=== PATIENT | female | born 1945 | race Caucasian/White ===

== ENCOUNTER 2020-06-19 23:36 | Inpatient (IN) ==
[2020-06-20 01:02] LABS: Basophils # 0.1 10*3/uL (0.0-0.2); Basophils % 0.8 % (0.0-0.8); Eosinophils # 0.2 10*3/uL (0.0-0.87); Eosinophils % 2.3 % (0.00-10.9); Hematocrit 36.4 VOL% (35.7-47.0); Hemoglobin 12.1 GM/DL (12.0-16.0); Immature Granulocytes % 2.2 %; Immature Granulocytes Absolute 0.23 #; Lymphocytes # 1.4 10*3/uL (1.4-4.0); Mean Corpuscular HGB Conc 33.2 GM/DL (32-36); Mean Corpuscular Volume 98.1 FL (87-102); Mean Platelet Volume 9.3 FL (9.6-12.0); Monocytes % 7.6 % (1.7-12.7); Neutrophils % 74.1 % (38.7-73.9); Platelet Count 329 T/CUMM (130-400); Red Blood Count 3.71 MC/CUMM (3.8-5.5); Red Cell Distribution Width 13.3 % (9.3-17.3); White Blood Count 10.6 T/CUMM (4-12)
[2020-06-20 01:14] LABS: ABG Base Excess 1.9 MMOL/L (-2.5-2.5); ABG HCO3 26.1 MMOL/L (20-26); ABG Oxygen Saturation 97.8 % (95-100); ABG PCO2 41.5 MM HG (35-48); ABG PH 7.415 (7.35-7.45); ABG PO2 98.5 MM HG (80-95); ABG TCO2 23.2 MMOL/L (23-27)
[2020-06-20] MEDS ORDERED: AZITHROMYCIN INJ 500 MG in SODIUM CHLORIDE 0.9% 250 ML IV STA (02:26)
[2020-06-20] MEDS ORDERED: cefTRIAXone 2,000 MG in SODIUM CHLORIDE 0.9% 100 ML IV STA (02:26)
[2020-06-20 02:55] LABS: Albumin 3.2 G/DL (3.4-5.0); Bilirubin,Total 0.5 MG/DL (0.2-1.0); Calcium 10.3 MG/DL (8.5-10.1); Osmolality,Calculated 286.1 MOS/KG (273-304); Potassium 5.5 MMOL/L (3.5-5.1); Total Protein 6.6 G/DL (6.4-8.2)
[2020-06-20] MEDS ORDERED: GLUCAGON 1 MG VIAL IM PRN (04:42)
[2020-06-20] MEDS ORDERED: DEXTROSE 50% 25 GM/50 ML VIAL IV PRN (04:42)
[2020-06-20] MEDS ORDERED: SODIUM CHLORIDE 0.9% 1,000 ML IV SCH ×2 (05:00→15:00)
[2020-06-20] MEDS: DOXYCYCLINE HYCLATE INJ 100 MG in SODIUM CHLORIDE 0.9% 100 ML IV SCH ×2 (06:09→20:51)
[2020-06-20] MEDS ORDERED: ALBUTEROL 1.25 MG/3 ML NEB RESP TX PRN (06:19)
[2020-06-20 07:43] LABS: Calcium 10.1 MG/DL (8.5-10.1); Osmolality,Calculated 283.1 MOS/KG (273-304); Potassium 4.9 MMOL/L (3.5-5.1)
[2020-06-20] MEDS: INSULIN LISPRO 100 UNIT/ML SUBCUT SCH ×5 (08:58→21:16)
[2020-06-20] MEDS: amLODIPine 10 MG TABLET PO SCH (08:59)
[2020-06-20] MEDS: METOPROLOL TARTRATE 50 MG TABLET PO SCH ×2 (08:59→20:51)
[2020-06-20] MEDS: ANASTROZOLE 1 MG TABLET PO SCH (08:59)
[2020-06-20] MEDS: LEVOTHYROXINE 150 MCG TABLET PO SCH (08:59)
[2020-06-20] MEDS: IPRATROPIUM 500 MCG/2.5 ML NEB RESP TX SCH ×2 (14:27→23:44)
[2020-06-20 16:20] LABS: Bilirubin,Urine Negative (Negative); Blood, Urine Negative (Negative); Glucose,Urine (UA) 50 mg/dL (Negative); Ketones,Urine Negative (Negative); Mucus,Urine Occasional /LPF (Occasional); Nitrite,Urine Negative (Negative); Protein,Urine 30 MG/DL; RBC,Urine 1 /HPF (0-4); Squamous Epithelial Cell,Urine Occasional /HPF (0-10); Urine Appearance CLEAR (Clear); Urine Color Yellow (Yellow); Urine Specific Gravity 1.017 (1.001-1.035); Urine Urobilinogen < 2.0 EU/DL (0.2-1.0)
[2020-06-20] MEDS: INSULIN ASPART PROTAMINE/ASPART 70/30 100 UNIT/ML SUBCUT SCH (18:20)
[2020-06-20] MEDS: cefTRIAXone 1,000 MG in SODIUM CHLORIDE 0.9% 100 ML IV SCH (18:20)
[2020-06-20] MEDS: ACETAMINOPHEN 325 MG TABLET PO PRN (20:50)
[2020-06-21 05:33] LABS: Basophils # 0.1 10*3/uL (0.0-0.2); Basophils % 0.7 % (0.0-0.8); Eosinophils # 0.1 10*3/uL (0.0-0.87); Eosinophils % 1.3 % (0.00-10.9); Hematocrit 34.6 VOL% (35.7-47.0); Hemoglobin 11.1 GM/DL (12.0-16.0); Immature Granulocytes % 1.8 %; Immature Granulocytes Absolute 0.15 #; Lymphocytes # 1.4 10*3/uL (1.4-4.0); Mean Corpuscular HGB Conc 32.1 GM/DL (32-36); Mean Platelet Volume 9.2 FL (9.6-12.0); Monocytes % 7.7 % (1.7-12.7); Neutrophils % 72.5 % (38.7-73.9); Platelet Count 284 T/CUMM (130-400); Red Blood Count 3.46 MC/CUMM (3.8-5.5); Red Cell Distribution Width 13.5 % (9.3-17.3); White Blood Count 8.5 T/CUMM (4-12)
[2020-06-21 06:47] LABS: Osmolality,Calculated 288.7 MOS/KG (273-304); Potassium 4.5 MMOL/L (3.5-5.1); Thyroid Stimulating Hormone 0.529 uIU/ml (0.358-3.74)
[2020-06-21] MEDS: IPRATROPIUM 500 MCG/2.5 ML NEB RESP TX SCH (06:55)
[2020-06-21 07:34] LABS: Basophils # 0.1 10*3/uL (0.0-0.2); Basophils % 0.6 % (0.0-0.8); Eosinophils # 0.2 10*3/uL (0.0-0.87); Eosinophils % 1.5 % (0.00-10.9); Hematocrit 35.3 VOL% (35.7-47.0); Hemoglobin 11.7 GM/DL (12.0-16.0); Lymphocytes # 1.5 10*3/uL (1.4-4.0); Lymphocytes % 14.9 % (21.3-54.2); Mean Corpuscular HGB Conc 33.1 GM/DL (32-36); Mean Corpuscular Volume 99.2 FL (87-102); Mean Platelet Volume 9.2 FL (9.6-12.0); Monocytes % 6.7 % (1.7-12.7); Neutrophils % 74.3 % (38.7-73.9); Platelet Count 280 T/CUMM (130-400); Red Blood Count 3.56 MC/CUMM (3.8-5.5); Red Cell Distribution Width 13.6 % (9.3-17.3)
[2020-06-21 07:50] LABS: Calcium 10.5 MG/DL (8.5-10.1); Potassium 4.1 MMOL/L (3.5-5.1)
[2020-06-21] MEDS: INSULIN LISPRO 100 UNIT/ML SUBCUT SCH ×4 (08:39→21:14)
[2020-06-21] MEDS: LEVOTHYROXINE 150 MCG TABLET PO SCH (08:40)
[2020-06-21] MEDS: ANASTROZOLE 1 MG TABLET PO SCH (08:40)
[2020-06-21] MEDS: INSULIN ASPART PROTAMINE/ASPART 70/30 100 UNIT/ML SUBCUT SCH ×2 (08:40→17:13)
[2020-06-21] MEDS: METOPROLOL TARTRATE 50 MG TABLET PO SCH ×2 (08:41→21:13)
[2020-06-21] MEDS: DOXYCYCLINE HYCLATE INJ 100 MG in SODIUM CHLORIDE 0.9% 100 ML IV SCH (08:41)
[2020-06-21] MEDS: amLODIPine 10 MG TABLET PO SCH (08:41)
[2020-06-21] MEDS: LEVOFLOXACIN 750 MG TABLET PO SCH (10:21)
[2020-06-21] MEDS ORDERED: LORazepam 2 MG/1 ML VIAL IV ONE (11:15)
[2020-06-21] MEDS: RIVAROXABAN 15 MG TABLET PO SCH (16:03)
[2020-06-21] MEDS: cefTRIAXone 1,000 MG in SODIUM CHLORIDE 0.9% 100 ML IV SCH (17:13)
[2020-06-21] MEDS: ALBUTEROL/IPRATROPIUM 3 ML NEB RESP TX SCH (20:45)
[2020-06-22] MEDS: ALBUTEROL/IPRATROPIUM 3 ML NEB RESP TX SCH ×4 (01:42→19:25)
[2020-06-22 07:50] LABS: Calcium 10.2 MG/DL (8.5-10.1); Osmolality,Calculated 290.7 MOS/KG (273-304); Potassium 4.6 MMOL/L (3.5-5.1)
[2020-06-22] MEDS: LEVOTHYROXINE 150 MCG TABLET PO SCH (08:07)
[2020-06-22] MEDS: METOPROLOL TARTRATE 50 MG TABLET PO SCH ×2 (08:07→22:19)
[2020-06-22] MEDS: INSULIN LISPRO 100 UNIT/ML SUBCUT SCH ×4 (08:08→22:17)
[2020-06-22] MEDS: amLODIPine 10 MG TABLET PO SCH (08:08)
[2020-06-22] MEDS: ANASTROZOLE 1 MG TABLET PO SCH (08:08)
[2020-06-22] MEDS: RIVAROXABAN 15 MG TABLET PO SCH (08:08)
[2020-06-22] MEDS: INSULIN ASPART PROTAMINE/ASPART 70/30 100 UNIT/ML SUBCUT SCH (08:10)
[2020-06-22] MEDS: cefTRIAXone 1,000 MG in SODIUM CHLORIDE 0.9% 100 ML IV SCH (16:11)
[2020-06-22] MEDS: ACETAMINOPHEN 325 MG TABLET PO PRN ×2 (16:22→22:19)
[2020-06-22] MEDS ORDERED: INSULIN ASPART PROTAMINE/ASPART 70/30 100 UNIT/ML SUBCUT SCH (16:30)
[2020-06-23] MEDS: ALBUTEROL/IPRATROPIUM 3 ML NEB RESP TX SCH ×4 (01:49→19:11)
[2020-06-23 07:01] LABS: Basophils # 0.1 10*3/uL (0.0-0.2); Basophils % 0.9 % (0.0-0.8); Eosinophils # 0.4 10*3/uL (0.0-0.87); Eosinophils % 6.3 % (0.00-10.9); Hematocrit 34.2 VOL% (35.7-47.0); Hemoglobin 10.9 GM/DL (12.0-16.0); Immature Granulocytes % 2.9 %; Immature Granulocytes Absolute 0.19 #; Lymphocytes # 1.1 10*3/uL (1.4-4.0); Lymphocytes % 16.8 % (21.3-54.2); Mean Corpuscular HGB Conc 31.9 GM/DL (32-36); Mean Platelet Volume 9.1 FL (9.6-12.0); Monocytes % 7.5 % (1.7-12.7); Neutrophils % 65.6 % (38.7-73.9); Platelet Count 289 T/CUMM (130-400); Red Blood Count 3.42 MC/CUMM (3.8-5.5); Red Cell Distribution Width 13.7 % (9.3-17.3); White Blood Count 6.7 T/CUMM (4-12)
[2020-06-23 07:25] LABS: Albumin 2.5 G/DL (3.4-5.0); Bilirubin,Total 0.5 MG/DL (0.2-1.0); Calcium 10.3 MG/DL (8.5-10.1); Osmolality,Calculated 293.4 MOS/KG (273-304); Potassium 4.5 MMOL/L (3.5-5.1); Total Protein 6.7 G/DL (6.4-8.2)
[2020-06-23] MEDS ORDERED: INSULIN ASPART PROTAMINE/ASPART 70/30 100 UNIT/ML SUBCUT SCH (07:30)
[2020-06-23] MEDS: INSULIN LISPRO 100 UNIT/ML SUBCUT SCH ×4 (09:53→20:24)
[2020-06-23] MEDS: METOPROLOL TARTRATE 50 MG TABLET PO SCH ×2 (09:55→20:23)
[2020-06-23] MEDS: LEVOFLOXACIN 750 MG TABLET PO SCH (09:55)
[2020-06-23] MEDS: RIVAROXABAN 15 MG TABLET PO SCH (09:55)
[2020-06-23] MEDS: amLODIPine 10 MG TABLET PO SCH (09:55)
[2020-06-23] MEDS: ANASTROZOLE 1 MG TABLET PO SCH (09:55)
[2020-06-23] MEDS: LEVOTHYROXINE 150 MCG TABLET PO SCH (09:55)
[2020-06-23] MEDS: ACETAMINOPHEN 325 MG TABLET PO PRN ×2 (13:52→20:22)
[2020-06-23] MEDS: cefTRIAXone 1,000 MG in SODIUM CHLORIDE 0.9% 100 ML IV SCH (16:23)
[2020-06-23] MEDS: INSULIN ASPART PROTAMINE/ASPART 70/30 100 UNIT/ML SUBCUT SCH (16:23)
[2020-06-24] MEDS: ALBUTEROL/IPRATROPIUM 3 ML NEB RESP TX SCH ×4 (00:03→19:28)
[2020-06-24] MEDS: METOPROLOL TARTRATE 50 MG TABLET PO SCH ×2 (08:15→21:07)
[2020-06-24] MEDS: ANASTROZOLE 1 MG TABLET PO SCH (08:15)
[2020-06-24] MEDS: amLODIPine 10 MG TABLET PO SCH (08:15)
[2020-06-24] MEDS: LEVOTHYROXINE 150 MCG TABLET PO SCH (08:15)
[2020-06-24] MEDS: RIVAROXABAN 15 MG TABLET PO SCH (08:16)
[2020-06-24] MEDS: INSULIN ASPART PROTAMINE/ASPART 70/30 100 UNIT/ML SUBCUT SCH ×2 (08:16→16:02)
[2020-06-24] MEDS: INSULIN LISPRO 100 UNIT/ML SUBCUT SCH ×4 (08:17→21:08)
[2020-06-24] MEDS ORDERED: MAGNESIUM HYDROXIDE SUSP 30 ML UDCUP PO PRN (09:25)
[2020-06-24] MEDS: cefTRIAXone 1,000 MG in SODIUM CHLORIDE 0.9% 100 ML IV SCH (16:02)
[2020-06-25] MEDS: ALBUTEROL/IPRATROPIUM 3 ML NEB RESP TX SCH ×4 (01:28→19:13)
[2020-06-25] MEDS: INSULIN ASPART PROTAMINE/ASPART 70/30 100 UNIT/ML SUBCUT SCH ×2 (08:25→17:26)
[2020-06-25] MEDS: ANASTROZOLE 1 MG TABLET PO SCH (08:26)
[2020-06-25] MEDS: LEVOTHYROXINE 150 MCG TABLET PO SCH (08:26)
[2020-06-25] MEDS: amLODIPine 10 MG TABLET PO SCH (08:26)
[2020-06-25] MEDS: RIVAROXABAN 15 MG TABLET PO SCH (08:27)
[2020-06-25] MEDS: POLYETHYLENE GLYCOL POWDER 17 GM PACK PO SCH (08:27)
[2020-06-25] MEDS: METOPROLOL TARTRATE 50 MG TABLET PO SCH ×2 (08:27→20:49)
[2020-06-25] MEDS: LEVOFLOXACIN 750 MG TABLET PO SCH (08:34)
[2020-06-25] MEDS: INSULIN LISPRO 100 UNIT/ML SUBCUT SCH ×4 (08:36→23:17)
[2020-06-25 09:42] LABS: Calcium 10.5 MG/DL (8.5-10.1); Osmolality,Calculated 291.4 MOS/KG (273-304); Potassium 4.9 MMOL/L (3.5-5.1)
[2020-06-25] MEDS: GABAPENTIN 300 MG CAPSULE PO SCH (20:47)
[2020-06-25] MEDS ORDERED: BISACODYL 5 MG TABLET PO SCH (21:00)
[2020-06-26] MEDS: ALBUTEROL/IPRATROPIUM 3 ML NEB RESP TX SCH ×4 (00:35→19:37)
[2020-06-26 05:35] LABS: Basophils # 0.1 10*3/uL (0.0-0.2); Basophils % 1.1 % (0.0-0.8); Eosinophils # 0.4 10*3/uL (0.0-0.87); Eosinophils % 6.3 % (0.00-10.9); Hematocrit 33.9 VOL% (35.7-47.0); Hemoglobin 10.8 GM/DL (12.0-16.0); Immature Granulocytes % 5.9 %; Immature Granulocytes Absolute 0.37 #; Lymphocytes # 1.5 10*3/uL (1.4-4.0); Lymphocytes % 23.1 % (21.3-54.2); Mean Corpuscular HGB Conc 31.9 GM/DL (32-36); Mean Corpuscular Volume 100.3 FL (87-102); Mean Platelet Volume 9.4 FL (9.6-12.0); Monocytes % 10.4 % (1.7-12.7); Neutrophils % 53.2 % (38.7-73.9); Platelet Count 306 T/CUMM (130-400); Red Blood Count 3.38 MC/CUMM (3.8-5.5); Red Cell Distribution Width 13.9 % (9.3-17.3); White Blood Count 6.3 T/CUMM (4-12)
[2020-06-26 05:59] LABS: Band Neutrophils 1 % (0-10); Eosinophils 11 % (0-10); Lymphocytes 31 % (20-55); Metamyelocytes 1 %; Promyelocytes 1 %; Segmented Neutrophils 46 % (50-85); Total Cells Counted 100
[2020-06-26 06:00] LABS: Hypochromasia Slight; Macrocytosis Slight
[2020-06-26 06:01] LABS: Platelet Estimate Normal; Polychromasia Slight
[2020-06-26 06:19] LABS: Calcium 10.4 MG/DL (8.5-10.1); Osmolality,Calculated 281.5 MOS/KG (273-304); Potassium 4.3 MMOL/L (3.5-5.1)
[2020-06-26] MEDS ORDERED: POTASSIUM CHLORIDE 20 MEQ/15 ML UDCUP PER TUBE PRN (08:03)
[2020-06-26] MEDS ORDERED: BISACODYL 10 MG SUPP RECTAL ONE (08:03)
[2020-06-26] MEDS: INSULIN LISPRO 100 UNIT/ML SUBCUT SCH ×4 (08:33→20:18)
[2020-06-26] MEDS: INSULIN ASPART PROTAMINE/ASPART 70/30 100 UNIT/ML SUBCUT SCH ×2 (08:33→16:21)
[2020-06-26] MEDS: ANASTROZOLE 1 MG TABLET PO SCH (08:36)
[2020-06-26] MEDS: GABAPENTIN 300 MG CAPSULE PO SCH ×2 (08:36→20:18)
[2020-06-26] MEDS: FUROSEMIDE 40 MG/4 ML VIAL IV SCH (08:36)
[2020-06-26] MEDS: amLODIPine 10 MG TABLET PO SCH (08:36)
[2020-06-26] MEDS: RIVAROXABAN 15 MG TABLET PO SCH (08:36)
[2020-06-26] MEDS: LEVOTHYROXINE 150 MCG TABLET PO SCH (08:36)
[2020-06-26] MEDS: METOPROLOL TARTRATE 50 MG TABLET PO SCH ×2 (08:36→20:18)
[2020-06-26] MEDS: POLYETHYLENE GLYCOL POWDER 17 GM PACK PO SCH (08:37)
[2020-06-27] MEDS: ALBUTEROL/IPRATROPIUM 3 ML NEB RESP TX SCH ×2 (01:00→07:20)
[2020-06-27 05:26] LABS: Calcium 10.8 MG/DL (8.5-10.1); Osmolality,Calculated 283.1 MOS/KG (273-304); Potassium 4.7 MMOL/L (3.5-5.1)
[2020-06-27] MEDS: RIVAROXABAN 15 MG TABLET PO SCH (08:05)
[2020-06-27] MEDS: ANASTROZOLE 1 MG TABLET PO SCH (08:05)
[2020-06-27] MEDS: LEVOTHYROXINE 150 MCG TABLET PO SCH (08:05)
[2020-06-27] MEDS: METOPROLOL TARTRATE 50 MG TABLET PO SCH (08:06)
[2020-06-27] MEDS: amLODIPine 10 MG TABLET PO SCH (08:06)
[2020-06-27] MEDS: GABAPENTIN 300 MG CAPSULE PO SCH (08:06)
[2020-06-27] MEDS: POLYETHYLENE GLYCOL POWDER 17 GM PACK PO SCH (08:07)
[2020-06-27] MEDS: INSULIN ASPART PROTAMINE/ASPART 70/30 100 UNIT/ML SUBCUT SCH (08:08)
[2020-06-27] MEDS: FUROSEMIDE 40 MG/4 ML VIAL IV SCH (08:09)
[2020-06-27] MEDS: INSULIN LISPRO 100 UNIT/ML SUBCUT SCH ×2 (08:09→11:59)
[2020-06-27] MEDS ORDERED: MULTIVITAMIN (BEROCCA) TABLET PO SCH (09:00)
[2020-06-27] MEDS ORDERED: MYLANTA/LIDO VISC 2:1 300 ML BOTTLE SWISH/SPIT PRN (09:01)
[2020-06-27] MEDS: LEVOFLOXACIN 750 MG TABLET PO SCH (09:50)
[2020-06-27 11:57] VITALS: BP 141/62
[2020-06-28] MEDS ORDERED: INSULIN ASPART PROTAMINE/ASPART 70/30 100 UNIT/ML SUBCUT SCH (07:30)
== END 2020-06-27 13:54 | disposition swing bed (61) | DRG 193 ==
LOC: N.EDINP 23:36 → N.ED 23:36 → N.5E 06-20 05:13 → SUATTDRO 06-21 11:01
PROVIDERS: ADMIT Family Medicine; ATTEND Internal Medicine

== ENCOUNTER 2022-05-01 14:36 | Inpatient (IN) ==
[2022-05-01 16:18] LABS: Basophils % 0.1 % (0.0-0.8); Hematocrit 32.8 VOL% (35.7-47.0); Hemoglobin 10.2 GM/DL (12.0-16.0); Immature Granulocytes % 0.9 %; Immature Granulocytes Absolute 0.12 #; Lymphocytes # 0.7 10*3/uL (1.4-4.0); Lymphocytes % 4.7 % (21.3-54.2); Mean Corpuscular HGB Conc 31.1 GM/DL (32-36); Mean Corpuscular Volume 104.1 FL (87-102); Mean Platelet Volume 9.9 FL (9.6-12.0); Monocytes # 0.3 10*3/uL (0.11-0.8); Monocytes % 1.9 % (1.7-12.7); Neutrophils % 92.4 % (38.7-73.9); Platelet Count 217 T/CUMM (130-400); Red Blood Count 3.15 MC/CUMM (3.8-5.5); Red Cell Distribution Width 16.4 % (9.3-17.3); White Blood Count 13.91 T/CUMM (4-12)
[2022-05-01 16:38] LABS: Albumin 2.8 G/DL (3.4-5.0); Bilirubin,Total 0.9 MG/DL (0.20-1.00); Calcium 9.5 MG/DL (8.5-10.1); Osmolality,Calculated 300.3 MOS/KG (273-304); Potassium 4.8 MMOL/L (3.5-5.1); Total Protein 6.8 G/DL (6.4-8.2)
[2022-05-01 16:43] LABS: Band Neutrophils 4 % (0-10); Lymphocytes 6 % (20-55); Metamyelocytes 1 %; Total Cells Counted 100
[2022-05-01 16:44] LABS: Microcytosis Slight; Platelet Estimate Normal
[2022-05-01] MEDS ORDERED: ONDANSETRON 4 MG/2 ML VIAL IV PRN (17:35)
[2022-05-01] MEDS ORDERED: GLUCAGON 1 MG VIAL IM PRN (17:35)
[2022-05-01] MEDS ORDERED: DEXTROSE 10% 250 ML BAG IV PRN (18:03)
[2022-05-01] MEDS ORDERED: VANCOMYCIN INJ 2,000 MG in SODIUM CHLORIDE 0.9% 500 ML IV ONE (21:00)
[2022-05-01] MEDS: INSULIN REGULAR 100 UNIT/ML SUBCUT SCH (22:28)
[2022-05-01] MEDS: METOPROLOL TARTRATE 50 MG TABLET PO SCH (22:29)
[2022-05-01] MEDS: GABAPENTIN 300 MG CAPSULE PO SCH (22:29)
[2022-05-01] MEDS: amLODIPine 10 MG TABLET PO SCH (22:30)
[2022-05-01] MEDS: ACETAMINOPHEN 325 MG TABLET PO PRN (23:38)
[2022-05-02] MEDS ORDERED: MORPHINE 2 MG/1 ML SYRINGE IV PRN (02:34)
[2022-05-02] MEDS: LEVOTHYROXINE 150 MCG TABLET PO SCH (05:52)
[2022-05-02 05:55] LABS: Basophils % 0.2 % (0.0-0.8); Eosinophils % 0.1 % (0.00-10.9); Hematocrit 30.4 VOL% (35.7-47.0); Hemoglobin 9.4 GM/DL (12.0-16.0); Immature Granulocytes % 0.8 %; Lymphocytes # 1.1 10*3/uL (1.4-4.0); Lymphocytes % 8.1 % (21.3-54.2); Mean Corpuscular HGB Conc 30.9 GM/DL (32-36); Mean Corpuscular Volume 104.1 FL (87-102); Mean Platelet Volume 9.8 FL (9.6-12.0); Monocytes # 0.6 10*3/uL (0.11-0.8); Monocytes % 4.6 % (1.7-12.7); Neutrophils % 86.2 % (38.7-73.9); Platelet Count 194 T/CUMM (130-400); Red Blood Count 2.92 MC/CUMM (3.8-5.5); Red Cell Distribution Width 16.3 % (9.3-17.3); White Blood Count 13.24 T/CUMM (4-12)
[2022-05-02 06:30] LABS: Albumin 2.6 G/DL (3.4-5.0); Bilirubin,Total 0.8 MG/DL (0.20-1.00); Calcium 9.4 MG/DL (8.5-10.1); Potassium 4.3 MMOL/L (3.5-5.1); Total Protein 6.4 G/DL (6.4-8.2)
[2022-05-02] MEDS ORDERED: NON-FORMULARY MEDICATION (Omeprazole 20 mg capsule,delayed release(DR/EC)) PO SCH (09:00)
[2022-05-02] MEDS ORDERED: VANCOMYCIN INJ 2,000 MG in SODIUM CHLORIDE 0.9% 500 ML IV PRN (10:41)
[2022-05-02] MEDS: GABAPENTIN 300 MG CAPSULE PO SCH ×3 (10:53→21:25)
[2022-05-02] MEDS: INSULIN REGULAR 100 UNIT/ML SUBCUT SCH ×4 (10:53→21:25)
[2022-05-02] MEDS: allopurinoL 100 MG TABLET PO SCH (10:54)
[2022-05-02] MEDS: RIVAROXABAN 15 MG TABLET PO SCH (10:54)
[2022-05-02] MEDS: ANASTROZOLE 1 MG TABLET PO SCH (10:54)
[2022-05-02] MEDS: PANTOPRAZOLE 40 MG TABLET PO SCH (10:54)
[2022-05-02] MEDS: METOPROLOL TARTRATE 50 MG TABLET PO SCH ×2 (11:02→21:25)
[2022-05-02] MEDS: LOSARTAN 25 MG TABLET PO SCH (11:02)
[2022-05-02] MEDS: SODIUM BICARB INJ 50 MEQ in SODIUM CHLORIDE 0.45% 1,000 ML IV SCH (11:16)
[2022-05-02] MEDS: amLODIPine 10 MG TABLET PO SCH (21:25)
[2022-05-02] MEDS: ZINC OXIDE 16% PASTE 57 GM TUBE TOP SCH (23:10)
[2022-05-03] MEDS: SODIUM BICARB INJ 50 MEQ in SODIUM CHLORIDE 0.45% 1,000 ML IV SCH ×2 (03:50→16:17)
[2022-05-03] MEDS ORDERED: DILTIAZEM 50 MG/10 ML VIAL IV ONE (05:00)
[2022-05-03 06:00] LABS: Basophils % 0.3 % (0.0-0.8); Eosinophils # 0.3 10*3/uL (0.0-0.87); Eosinophils % 2.9 % (0.00-10.9); Hemoglobin 9.9 GM/DL (12.0-16.0); Immature Granulocytes % 1.1 %; Immature Granulocytes Absolute 0.12 #; Lymphocytes # 1.2 10*3/uL (1.4-4.0); Mean Corpuscular HGB Conc 31.9 GM/DL (32-36); Mean Corpuscular Volume 99.7 FL (87-102); Mean Platelet Volume 9.8 FL (9.6-12.0); Monocytes # 0.6 10*3/uL (0.11-0.8); Monocytes % 5.3 % (1.7-12.7); Neutrophils % 79.4 % (38.7-73.9); Platelet Count 190 T/CUMM (130-400); Red Blood Count 3.11 MC/CUMM (3.8-5.5); Red Cell Distribution Width 15.9 % (9.3-17.3); White Blood Count 11.19 T/CUMM (4-12)
[2022-05-03 06:21] LABS: Calcium 8.8 MG/DL (8.5-10.1); Osmolality,Calculated 289.4 MOS/KG (273-304); Potassium 4.7 MMOL/L (3.5-5.1)
[2022-05-03] MEDS: LEVOTHYROXINE 150 MCG TABLET PO SCH (06:29)
[2022-05-03] MEDS: INSULIN REGULAR 100 UNIT/ML SUBCUT SCH ×4 (08:11→21:14)
[2022-05-03] MEDS: RIVAROXABAN 15 MG TABLET PO SCH (08:21)
[2022-05-03] MEDS: ANASTROZOLE 1 MG TABLET PO SCH (08:21)
[2022-05-03] MEDS: PANTOPRAZOLE 40 MG TABLET PO SCH (08:21)
[2022-05-03] MEDS: ZINC OXIDE 16% PASTE 57 GM TUBE TOP SCH ×2 (08:21→21:14)
[2022-05-03] MEDS: LOSARTAN 25 MG TABLET PO SCH (08:21)
[2022-05-03] MEDS: allopurinoL 100 MG TABLET PO SCH (08:21)
[2022-05-03] MEDS: GABAPENTIN 300 MG CAPSULE PO SCH ×3 (08:21→21:13)
[2022-05-03] MEDS: METOPROLOL TARTRATE 50 MG TABLET PO SCH ×2 (08:21→21:13)
[2022-05-03] MEDS ORDERED: VANCOMYCIN INJ 2,000 MG in SODIUM CHLORIDE 0.9% 500 ML IV ONE (11:00)
[2022-05-03] MEDS: amLODIPine 10 MG TABLET PO SCH (21:13)
[2022-05-04] MEDS: SODIUM BICARB INJ 50 MEQ in SODIUM CHLORIDE 0.45% 1,000 ML IV SCH (04:37)
[2022-05-04 05:14] LABS: Basophils # 0.1 10*3/uL (0.0-0.2); Basophils % 0.8 % (0.0-0.8); Eosinophils # 0.4 10*3/uL (0.0-0.87); Eosinophils % 5.1 % (0.00-10.9); Hematocrit 31.7 VOL% (35.7-47.0); Hemoglobin 10.2 GM/DL (12.0-16.0); Immature Granulocytes % 2.6 %; Immature Granulocytes Absolute 0.19 #; Lymphocytes # 1.3 10*3/uL (1.4-4.0); Mean Corpuscular HGB Conc 32.2 GM/DL (32-36); Mean Corpuscular Volume 100.6 FL (87-102); Mean Platelet Volume 10.3 FL (9.6-12.0); Monocytes # 0.7 10*3/uL (0.11-0.8); Monocytes % 8.9 % (1.7-12.7); Neutrophils % 65.6 % (38.7-73.9); Platelet Count 210 T/CUMM (130-400); Red Blood Count 3.15 MC/CUMM (3.8-5.5); Red Cell Distribution Width 15.7 % (9.3-17.3)
[2022-05-04 05:34] LABS: Calcium 8.4 MG/DL (8.5-10.1); Potassium 4.5 MMOL/L (3.5-5.1)
[2022-05-04] MEDS: LEVOTHYROXINE 150 MCG TABLET PO SCH (05:36)
[2022-05-04] MEDS: PANTOPRAZOLE 40 MG TABLET PO SCH (09:37)
[2022-05-04] MEDS: allopurinoL 100 MG TABLET PO SCH (09:37)
[2022-05-04] MEDS: RIVAROXABAN 15 MG TABLET PO SCH (09:38)
[2022-05-04] MEDS: GABAPENTIN 300 MG CAPSULE PO SCH ×3 (09:38→21:19)
[2022-05-04] MEDS: ANASTROZOLE 1 MG TABLET PO SCH (09:38)
[2022-05-04] MEDS: LOSARTAN 25 MG TABLET PO SCH (09:39)
[2022-05-04] MEDS: METOPROLOL TARTRATE 50 MG TABLET PO SCH ×2 (09:39→21:21)
[2022-05-04] MEDS: INSULIN REGULAR 100 UNIT/ML SUBCUT SCH ×4 (09:42→21:27)
[2022-05-04] MEDS: ZINC OXIDE 16% PASTE 57 GM TUBE TOP SCH ×2 (10:07→21:27)
[2022-05-04] MEDS: POLYETHYLENE GLYCOL POWDER 17 GM PACK PO SCH (14:01)
[2022-05-04] MEDS: DOCUSATE SODIUM 100 MG CAPSULE PO SCH ×2 (14:01→21:21)
[2022-05-04] MEDS: VANCOMYCIN INJ 2,000 MG in SODIUM CHLORIDE 0.9% 500 ML IV SCH (17:45)
[2022-05-04] MEDS: amLODIPine 10 MG TABLET PO SCH (21:21)
[2022-05-05] MEDS: MAGNESIUM HYDROXIDE SUSP 30 ML UDCUP PO PRN (00:55)
[2022-05-05] MEDS: LEVOTHYROXINE 150 MCG TABLET PO SCH (06:13)
[2022-05-05 07:00] LABS: Basophils # 0.1 10*3/uL (0.0-0.2); Basophils % 1.2 % (0.0-0.8); Eosinophils # 0.4 10*3/uL (0.0-0.87); Eosinophils % 7.5 % (0.00-10.9); Hematocrit 31.9 VOL% (35.7-47.0); Hemoglobin 10.2 GM/DL (12.0-16.0); Immature Granulocytes % 6.1 %; Immature Granulocytes Absolute 0.35 #; Lymphocytes # 1.1 10*3/uL (1.4-4.0); Lymphocytes % 19.9 % (21.3-54.2); Mean Platelet Volume 10.7 FL (9.6-12.0); Monocytes # 0.7 10*3/uL (0.11-0.8); Monocytes % 12.4 % (1.7-12.7); Neutrophils % 52.9 % (38.7-73.9); Platelet Count 218 T/CUMM (130-400); Red Blood Count 3.19 MC/CUMM (3.8-5.5); Red Cell Distribution Width 15.4 % (9.3-17.3); White Blood Count 5.74 T/CUMM (4-12)
[2022-05-05 07:26] LABS: Calcium 8.6 MG/DL (8.5-10.1); Eosinophils 8 % (0-10); Hypochromia Slight; Lymphocytes 23 % (20-55); Osmolality,Calculated 293.8 MOS/KG (273-304); Platelet Estimate Adequate; Potassium 4.4 MMOL/L (3.5-5.1); Total Cells Counted 100
[2022-05-05] MEDS: METOPROLOL TARTRATE 50 MG TABLET PO SCH ×2 (09:07→20:27)
[2022-05-05] MEDS: RIVAROXABAN 15 MG TABLET PO SCH (09:07)
[2022-05-05] MEDS: GABAPENTIN 300 MG CAPSULE PO SCH ×3 (09:07→20:27)
[2022-05-05] MEDS: ANASTROZOLE 1 MG TABLET PO SCH (09:07)
[2022-05-05] MEDS: DOCUSATE SODIUM 100 MG CAPSULE PO SCH ×2 (09:07→20:27)
[2022-05-05] MEDS: allopurinoL 100 MG TABLET PO SCH (09:07)
[2022-05-05] MEDS: POLYETHYLENE GLYCOL POWDER 17 GM PACK PO SCH (09:07)
[2022-05-05] MEDS: PANTOPRAZOLE 40 MG TABLET PO SCH (09:07)
[2022-05-05] MEDS: ZINC OXIDE 16% PASTE 57 GM TUBE TOP SCH ×2 (09:09→20:31)
[2022-05-05] MEDS: LOSARTAN 25 MG TABLET PO SCH (09:09)
[2022-05-05] MEDS: INSULIN REGULAR 100 UNIT/ML SUBCUT SCH ×4 (09:09→20:29)
[2022-05-05] MEDS ORDERED: SODIUM PHOSPHATE ENEMA 133 ML BOTTLE RECTAL ONE (11:00)
[2022-05-05] MEDS: amLODIPine 10 MG TABLET PO SCH (20:27)
[2022-05-05] MEDS: VANCOMYCIN INJ 2,000 MG in SODIUM CHLORIDE 0.9% 500 ML IV SCH (20:30)
[2022-05-05] MEDS: ACETAMINOPHEN 325 MG TABLET PO PRN (23:00)
[2022-05-06] MEDS: LEVOTHYROXINE 150 MCG TABLET PO SCH (06:23)
[2022-05-06 06:26] LABS: Basophils # 0.1 10*3/uL (0.0-0.2); Eosinophils # 0.3 10*3/uL (0.0-0.87); Eosinophils % 4.3 % (0.00-10.9); Hematocrit 31.9 VOL% (35.7-47.0); Immature Granulocytes % 10.4 %; Immature Granulocytes Absolute 0.61 #; Lymphocytes % 17.8 % (21.3-54.2); Mean Corpuscular HGB Conc 31.3 GM/DL (32-36); Mean Corpuscular Volume 100.6 FL (87-102); Monocytes # 0.6 10*3/uL (0.11-0.8); Monocytes % 10.3 % (1.7-12.7); Neutrophils % 56.2 % (38.7-73.9); Platelet Count 236 T/CUMM (130-400); Red Blood Count 3.17 MC/CUMM (3.8-5.5); Red Cell Distribution Width 15.3 % (9.3-17.3); White Blood Count 5.84 T/CUMM (4-12)
[2022-05-06 06:48] LABS: Calcium 8.8 MG/DL (8.5-10.1); Potassium 4.6 MMOL/L (3.5-5.1)
[2022-05-06 06:56] LABS: Band Neutrophils 3 % (0-10); Eosinophils 7 % (0-10); Lymphocytes 17 % (20-55); Metamyelocytes 2 %; Myelocytes 1 %; Total Cells Counted 100
[2022-05-06 06:58] LABS: Platelet Estimate Normal
[2022-05-06] MEDS: allopurinoL 100 MG TABLET PO SCH (08:18)
[2022-05-06] MEDS: INSULIN REGULAR 100 UNIT/ML SUBCUT SCH ×5 (08:18→22:01)
[2022-05-06] MEDS: RIVAROXABAN 15 MG TABLET PO SCH (08:18)
[2022-05-06] MEDS: GABAPENTIN 300 MG CAPSULE PO SCH ×3 (08:18→22:00)
[2022-05-06] MEDS: LOSARTAN 25 MG TABLET PO SCH (08:19)
[2022-05-06] MEDS: MAGNESIUM HYDROXIDE SUSP 30 ML UDCUP PO PRN (08:19)
[2022-05-06] MEDS: POLYETHYLENE GLYCOL POWDER 17 GM PACK PO SCH (08:19)
[2022-05-06] MEDS: DOCUSATE SODIUM 100 MG CAPSULE PO SCH ×2 (08:19→22:00)
[2022-05-06] MEDS: PANTOPRAZOLE 40 MG TABLET PO SCH (08:19)
[2022-05-06] MEDS: ANASTROZOLE 1 MG TABLET PO SCH (08:19)
[2022-05-06] MEDS: METOPROLOL TARTRATE 50 MG TABLET PO SCH ×2 (08:19→22:00)
[2022-05-06] MEDS: ZINC OXIDE 16% PASTE 57 GM TUBE TOP SCH ×2 (09:38→22:01)
[2022-05-06] MEDS ORDERED: SKIN HEALING OINT (AQUAPHOR) 50 GM TUBE TOP PRN (14:20)
[2022-05-06] MEDS: INSULIN GLARGINE 100 UNIT/ML SUBCUT SCH (16:55)
[2022-05-06] MEDS: amLODIPine 10 MG TABLET PO SCH (22:00)
[2022-05-06] MEDS: VANCOMYCIN INJ 2,000 MG in SODIUM CHLORIDE 0.9% 500 ML IV SCH (23:11)
[2022-05-07 05:09] LABS: Basophils # 0.1 10*3/uL (0.0-0.2); Basophils % 1.6 % (0.0-0.8); Eosinophils # 0.4 10*3/uL (0.0-0.87); Eosinophils % 5.1 % (0.00-10.9); Hematocrit 33.3 VOL% (35.7-47.0); Hemoglobin 10.3 GM/DL (12.0-16.0); Immature Granulocytes % 14.9 %; Immature Granulocytes Absolute 1.18 #; Lymphocytes # 1.2 10*3/uL (1.4-4.0); Lymphocytes % 14.7 % (21.3-54.2); Mean Corpuscular HGB Conc 30.9 GM/DL (32-36); Mean Corpuscular Volume 101.2 FL (87-102); Mean Platelet Volume 9.5 FL (9.6-12.0); Monocytes # 0.6 10*3/uL (0.11-0.8); Monocytes % 7.5 % (1.7-12.7); NRBC # 0.02 10*3/uL; Neutrophils % 56.2 % (38.7-73.9); Platelet Count 249 T/CUMM (130-400); Red Blood Count 3.29 MC/CUMM (3.8-5.5); Red Cell Distribution Width 15.3 % (9.3-17.3); White Blood Count 7.91 T/CUMM (4-12)
[2022-05-07 05:27] LABS: Calcium 9.2 MG/DL (8.5-10.1); Osmolality,Calculated 291.8 MOS/KG (273-304); Potassium 4.7 MMOL/L (3.5-5.1)
[2022-05-07 05:38] LABS: Band Neutrophils 3 % (0-10); Eosinophils 8 % (0-10); Lymphocytes 21 % (20-55); Metamyelocytes 1 %; Myelocytes 2 %; Nucleated Red Blood Cells 1 /100 WBC (0-5); Total Cells Counted 100
[2022-05-07 05:40] LABS: Platelet Estimate Normal
[2022-05-07] MEDS: LEVOTHYROXINE 150 MCG TABLET PO SCH (06:25)
[2022-05-07] MEDS: RIVAROXABAN 15 MG TABLET PO SCH (09:33)
[2022-05-07] MEDS: allopurinoL 100 MG TABLET PO SCH (09:33)
[2022-05-07] MEDS: ANASTROZOLE 1 MG TABLET PO SCH (09:33)
[2022-05-07] MEDS: METOPROLOL TARTRATE 50 MG TABLET PO SCH ×2 (09:33→21:49)
[2022-05-07] MEDS: PANTOPRAZOLE 40 MG TABLET PO SCH (09:33)
[2022-05-07] MEDS: GABAPENTIN 300 MG CAPSULE PO SCH ×3 (09:33→21:49)
[2022-05-07] MEDS: LOSARTAN 25 MG TABLET PO SCH (09:33)
[2022-05-07] MEDS: DOCUSATE SODIUM 100 MG CAPSULE PO SCH ×2 (09:33→21:50)
[2022-05-07] MEDS: POLYETHYLENE GLYCOL POWDER 17 GM PACK PO SCH (09:35)
[2022-05-07] MEDS: ZINC OXIDE 16% PASTE 57 GM TUBE TOP SCH ×2 (09:35→21:52)
[2022-05-07] MEDS: INSULIN REGULAR 100 UNIT/ML SUBCUT SCH ×4 (09:36→21:52)
[2022-05-07] MEDS: INSULIN GLARGINE 100 UNIT/ML SUBCUT SCH (09:37)
[2022-05-07] MEDS: amLODIPine 10 MG TABLET PO SCH (21:49)
[2022-05-07] MEDS ORDERED: BISACODYL 5 MG TABLET PO ONE ×2 (22:30→23:15)
[2022-05-08 05:48] LABS: Basophils # 0.1 10*3/uL (0.0-0.2); Basophils % 1.3 % (0.0-0.8); Eosinophils # 0.6 10*3/uL (0.0-0.87); Eosinophils % 6.7 % (0.00-10.9); Hematocrit 32.5 VOL% (35.7-47.0); Hemoglobin 10.5 GM/DL (12.0-16.0); Immature Granulocytes % 15.1 %; Immature Granulocytes Absolute 1.26 #; Lymphocytes # 1.4 10*3/uL (1.4-4.0); Lymphocytes % 16.9 % (21.3-54.2); Mean Corpuscular HGB Conc 32.3 GM/DL (32-36); Mean Corpuscular Volume 100.6 FL (87-102); Mean Platelet Volume 9.4 FL (9.6-12.0); Monocytes # 0.6 10*3/uL (0.11-0.8); Monocytes % 7.1 % (1.7-12.7); NRBC # 0.04 10*3/uL; Neutrophils % 52.9 % (38.7-73.9); Platelet Count 259 T/CUMM (130-400); Red Blood Count 3.23 MC/CUMM (3.8-5.5); Red Cell Distribution Width 15.4 % (9.3-17.3); White Blood Count 8.35 T/CUMM (4-12)
[2022-05-08 06:19] LABS: Calcium 9.3 MG/DL (8.5-10.1); Osmolality,Calculated 286.8 MOS/KG (273-304)
[2022-05-08] MEDS: LEVOTHYROXINE 150 MCG TABLET PO SCH (06:20)
[2022-05-08 06:32] LABS: Band Neutrophils 4 % (0-10); Eosinophils 6 % (0-10); Hypochromia Slight; Lymphocytes 15 % (20-55); Microcytosis Slight; Platelet Estimate Adequate; Total Cells Counted 100
[2022-05-08] MEDS: INSULIN REGULAR 100 UNIT/ML SUBCUT SCH ×4 (07:34→21:45)
[2022-05-08] MEDS: MAGNESIUM HYDROXIDE SUSP 30 ML UDCUP PO PRN (08:55)
[2022-05-08] MEDS: allopurinoL 100 MG TABLET PO SCH (08:55)
[2022-05-08] MEDS: ANASTROZOLE 1 MG TABLET PO SCH (08:55)
[2022-05-08] MEDS: LOSARTAN 25 MG TABLET PO SCH (08:55)
[2022-05-08] MEDS: RIVAROXABAN 15 MG TABLET PO SCH (08:56)
[2022-05-08] MEDS: PANTOPRAZOLE 40 MG TABLET PO SCH (08:56)
[2022-05-08] MEDS: METOPROLOL TARTRATE 50 MG TABLET PO SCH ×2 (08:56→21:42)
[2022-05-08] MEDS: DOCUSATE SODIUM 100 MG CAPSULE PO SCH ×2 (08:56→21:42)
[2022-05-08] MEDS: GABAPENTIN 300 MG CAPSULE PO SCH ×3 (08:56→21:42)
[2022-05-08] MEDS: INSULIN GLARGINE 100 UNIT/ML SUBCUT SCH (08:57)
[2022-05-08] MEDS: ZINC OXIDE 16% PASTE 57 GM TUBE TOP SCH ×2 (08:59→21:46)
[2022-05-08] MEDS ORDERED: SODIUM PHOSPHATE ENEMA 133 ML BOTTLE RECTAL PRN (10:58)
[2022-05-08] MEDS: POLYETHYLENE GLYCOL POWDER 17 GM PACK PO SCH (11:51)
[2022-05-08] MEDS: amLODIPine 10 MG TABLET PO SCH (21:42)
[2022-05-09] MEDS: LEVOTHYROXINE 150 MCG TABLET PO SCH (05:52)
[2022-05-09 05:53] LABS: Basophils # 0.1 10*3/uL (0.0-0.2); Basophils % 1.2 % (0.0-0.8); Eosinophils # 0.5 10*3/uL (0.0-0.87); Eosinophils % 6.7 % (0.00-10.9); Hematocrit 32.1 VOL% (35.7-47.0); Hemoglobin 10.1 GM/DL (12.0-16.0); Immature Granulocytes % 11.1 %; Immature Granulocytes Absolute 0.86 #; Lymphocytes # 1.4 10*3/uL (1.4-4.0); Lymphocytes % 18.4 % (21.3-54.2); Mean Corpuscular HGB Conc 31.5 GM/DL (32-36); Mean Corpuscular Volume 100.9 FL (87-102); Mean Platelet Volume 9.7 FL (9.6-12.0); Monocytes # 0.6 10*3/uL (0.11-0.8); NRBC # 0.02 10*3/uL; Neutrophils % 54.6 % (38.7-73.9); Platelet Count 303 T/CUMM (130-400); Red Blood Count 3.18 MC/CUMM (3.8-5.5); Red Cell Distribution Width 15.5 % (9.3-17.3); White Blood Count 7.77 T/CUMM (4-12)
[2022-05-09 06:20] LABS: Anisocytosis 1+; Band Neutrophils 12 % (0-10); Eosinophils 7 % (0-10); Lymphocytes 19 % (20-55); Macrocytosis 1+; Metamyelocytes 3 %; Platelet Estimate Normal; Total Cells Counted 100
[2022-05-09 06:26] LABS: Calcium 9.6 MG/DL (8.5-10.1); Potassium 4.9 MMOL/L (3.5-5.1)
[2022-05-09] MEDS: INSULIN REGULAR 100 UNIT/ML SUBCUT SCH ×2 (08:12→12:22)
[2022-05-09] MEDS: DOCUSATE SODIUM 100 MG CAPSULE PO SCH (09:24)
[2022-05-09] MEDS: allopurinoL 100 MG TABLET PO SCH (09:24)
[2022-05-09] MEDS: ANASTROZOLE 1 MG TABLET PO SCH (09:24)
[2022-05-09] MEDS: RIVAROXABAN 15 MG TABLET PO SCH (09:24)
[2022-05-09] MEDS: LOSARTAN 25 MG TABLET PO SCH (09:24)
[2022-05-09] MEDS: PANTOPRAZOLE 40 MG TABLET PO SCH (09:24)
[2022-05-09] MEDS: INSULIN GLARGINE 100 UNIT/ML SUBCUT SCH (09:25)
[2022-05-09] MEDS: POLYETHYLENE GLYCOL POWDER 17 GM PACK PO SCH (09:25)
[2022-05-09] MEDS: GABAPENTIN 300 MG CAPSULE PO SCH (09:28)
[2022-05-09] MEDS: ZINC OXIDE 16% PASTE 57 GM TUBE TOP SCH (09:34)
[2022-05-09] MEDS: METOPROLOL TARTRATE 50 MG TABLET PO SCH (09:35)
[2022-05-09 12:12] VITALS: BP 105/48
== END 2022-05-09 15:44 | disposition swing bed (61) | DRG 638 ==
LOC: EDUNIT# → EDBD → N.ED 14:36 → N.EDINP 17:35 → SUATTDRO 17:35 → N.2E 18:59
PROVIDERS: ADMIT Internal Medicine; ATTEND Hospitalist